=== PATIENT | male | born 1935 | race Caucasian/White ===

== ENCOUNTER 2016-03-05 08:59 | Emergency (ER) | payer MEDICARE, BC ==
[2008-06-22 01:37] VITALS: BP 135/91
[~2016-03-05] VITALS: Ht 185.4 cm; Wt 100.9 kg
[~2016-03-05 08:59] MED LIST: ACTOS30 MG PO; AMBIEN10 MG PO; ANTIVERT 12.512.5 MG PO; ASPIRIN E.C. 8181 MG PO; ATIVAN 0.50.5 MG/TAB PO; ATIVAN0.5 MG PO; BENEMID500 MG PO; CEPHALEXIN500 M1 PO; CLOPIDOGREL; COLACE100 MG/10 PO; COUMADIN 5MG5 MG/TAB PO; COUMADIN PO; DIOVAN 40MG40 MG; DIOVAN HCT; DIOVAN HCT 12.51 TAB PO; DIOVAN/HCT 12.51 TAB PO; FLOMAX 0.40.4 MG/CAP PO; FORTAMET500 MG PO; GLIPIZIDE XL5 MG PO; GLIPIZIDE5 MG PO; GLUCOPHAGE XR500 M1 PO; GLUCOPHAGE1000 MG PO; GLUCOTROL XL5 MG/TAB PO; JANUVIA 100MG100 MG PO; JANUVIA100 MG PO; LASIX 40MG TABL40 MG PO; LIPITOR 10MG10 MG PO; LIPITOR20 MG PO; NEXIUM40 MG PO; NITROSTAT0.4 MG SL; NORCO 325 MG-51 TAB PO; NORVASC 10MG10 MG PO; NORVASC 5MG5 MG/TAB PO; NORVASC10 MG PO; PEPCID 20MG TAB20 MG PO; PLAVIX 75MG TAB75 MG PO; PREVACID 30MG30 M1 PO; PROBENECID; PROTONIX 40MG T40 MG PO; TOPROL XL 50MG50 MG PO; TOPROL XL100 MG PO; WARFARIN SODIUM5 MG PO; [UNRECOGNIZED DRUG - OTHER]
[2016-03-05 09:51] LABS: BASO # 0.1 (0.0-0.2); BASO % 0.8 % (0.0-2.0); EOS # 0.4 (0.0-0.7); EOS % 3.5 % (0-4.0); GRAN # 7.8 (1.4-6.5); GRAN % 73.1 % (42.2-75.2); HEMOGLOBIN 12.6 g/dl (13.5-18.0); LYMPH # 1.3 (1.2-3.4); LYMPH % 12.5 % (20.0-51.0); MEAN CELL VOLUME 90 fl (80.0-100.0); MEAN CORPUSCULAR HEMOGLOBIN 31 pg (27.0-31.0); MEAN CORPUSCULAR HGB CONC 34 g/dl (33.0-37.0); MEAN PLATELET VOLUME 10.5 fl (7.4-10.4); MONO % 9.3 % (1.7-9.3); PLATELET COUNT 184 K/mm3 (130-400); RED BLOOD COUNT 4.07 M/mm3 (4.20-5.60); REDCELL DISTRIBUTION WIDTH-CV 13.9 % (11.5-14.5); WHITE BLOOD COUNT 10.7 K/mm3 (4.8-10.8)
[2016-03-05 09:55] LABS: HEMATOCRIT 36.8 % (42.0-52.0)
[2016-03-05 09:58] LABS: PH 5 (5-8); SQUAMOUS EPITHELIAL None Seen /hpf; URINE APPEARANCE Clear; URINE BACTERIA None Seen /hpf; URINE BILIRUBIN Negative (NEGATIVE); URINE BLOOD 2+ (NEGATIVE); URINE COLOR Yellow; URINE GLUCOSE Negative (NEGATIVE); URINE KETONE Negative (NEGATIVE); URINE RBC 20-50 /hpf; URINE UROBILINOGEN Negative (NEGATIVE); URINE WBC 0-2 /hpf
[2016-03-05 10:27] VITALS: BP 149/86; PULSE 86; TEMP 97.4
[2016-03-05 10:27] LABS: ADJUSTED CALCIUM 10.5 mg/dL (8.4-10.2); ALBUMIN 3.5 gm/dL (3.5-5.0); BILIRUBIN,TOTAL 0.7 mg/dL (0.0-1.0); CALCIUM 10.1 mg/dL (8.4-10.2); CREATININE, serum 1.18 mg/dL (0.66-1.25); POTASSIUM 3.8 mmol/L (3.4-5.0); TOTAL PROTEIN 6.3 gm/dL (6.4-8.2)
[2016-03-05] MEDS ORDERED: MACROBID 1100 MG/CAP PO (22:23)
[2016-03-05] MEDS ORDERED: PYRIDIUM200 M1 PO (22:23)
== END 2016-03-05 10:07 | disposition home or self-care (01) ==
LOC: COL.ER 08:59
PROVIDERS: Family Medicine
DX: R33.9 Retention of urine, unspecified (principal); E11.9 Type 2 diabetes mellitus without complications; I10 Essential (primary) hypertension; Z95.5 Presence of coronary angioplasty implant and graft
CPT/HCPCS: J7040

== ENCOUNTER 2016-03-05 20:25 | Emergency (ER) | payer MEDICARE, BC ==
[2008-06-22 01:37] VITALS: BP 135/91
[~2016-03-05] VITALS: Ht 182.9 cm; Wt 100.9 kg
[2016-03-05 20:27] VITALS: TEMP 97.4
[2016-03-05 21:28] LABS: BASO # 0.1 (0.0-0.2); BASO % 0.5 % (0.0-2.0); EOS # 0.3 (0.0-0.7); EOS % 2.2 % (0-4.0); GRAN # 9.6 (1.4-6.5); GRAN % 74.6 % (42.2-75.2); HEMATOCRIT 37.5 % (42.0-52.0); HEMOGLOBIN 12.7 g/dl (13.5-18.0); LYMPH # 1.6 (1.2-3.4); LYMPH % 12.2 % (20.0-51.0); MEAN CELL VOLUME 90 fl (80.0-100.0); MEAN CORPUSCULAR HEMOGLOBIN 31 pg (27.0-31.0); MEAN CORPUSCULAR HGB CONC 34 g/dl (33.0-37.0); MEAN PLATELET VOLUME 10.6 fl (7.4-10.4); MONO # 1.3 (0.1-0.6); PLATELET COUNT 200 K/mm3 (130-400); RED BLOOD COUNT 4.15 M/mm3 (4.20-5.60); REDCELL DISTRIBUTION WIDTH-CV 14.1 % (11.5-14.5); WHITE BLOOD COUNT 12.9 K/mm3 (4.8-10.8)
[2016-03-05 21:35] LABS: INR 1.9 (0.8-3.0); PROTHROMBIN TIME 21.1 SECONDS (9.7-12.8)
[2016-03-05 21:37] LABS: PARTIAL THROMBOPLASTIN TIME 32.9 SECONDS (26.0-37.0)
[2016-03-05 21:40] LABS: CALCIUM 10.1 mg/dL (8.4-10.2); CREATININE, serum 1.3 mg/dL (0.66-1.25); POTASSIUM 3.7 mmol/L (3.4-5.0)
[2016-03-05] MEDS ORDERED: MACROBID 1100 MG/CAP PO (22:23)
[2016-03-05] MEDS ORDERED: PYRIDIUM200 M1 PO (22:23)
[2016-03-05 22:59] VITALS: BP 151/89; PULSE 84
== END 2016-03-05 22:59 | disposition home or self-care (01) ==
LOC: COL.ER 20:25
PROVIDERS: Emergency Medicine
DX: R33.9 Retention of urine, unspecified (principal); R31.9 Hematuria, unspecified; I10 Essential (primary) hypertension; Z46.6 Encounter for fitting and adjustment of urinary device; I25.10 Atherosclerotic heart disease of native coronary artery without angina pectoris; Z95.5 Presence of coronary angioplasty implant and graft; E11.9 Type 2 diabetes mellitus without complications; Z79.01 Long term (current) use of anticoagulants; Z79.02 Long term (current) use of antithrombotics/antiplatelets; Z95.1 Presence of aortocoronary bypass graft
CPT/HCPCS: J7040

== ENCOUNTER 2016-03-08 14:16 | Emergency (ER) | payer MEDICARE, BC ==
[2008-06-22 01:37] VITALS: BP 135/91
[~2016-03-08] VITALS: Ht 185.4 cm; Wt 100.9 kg
[~2016-03-08 14:16] MED LIST changes: +MACROBID 1100 MG/CAP PO; +PYRIDIUM200 M1 PO
[2016-03-08 14:21] VITALS: BP 129/64; TEMP 97.5
[2016-03-08 15:44] LABS: PH 6 (5-8); SQUAMOUS EPITHELIAL None Seen /hpf; URINE APPEARANCE Cloudy; URINE BACTERIA None Seen /hpf; URINE BILIRUBIN Negative (NEGATIVE); URINE BLOOD 2+ (NEGATIVE); URINE COLOR Amber; URINE GLUCOSE 1+ (NEGATIVE); URINE KETONE Negative (NEGATIVE); URINE RBC >50 /hpf; URINE UROBILINOGEN Negative (NEGATIVE); URINE WBC None Seen /hpf
[2016-03-08 15:53] LABS: BASO # 0.1 (0.0-0.2); BASO % 0.4 % (0.0-2.0); EOS # 0.4 (0.0-0.7); EOS % 2.7 % (0-4.0); GRAN # 10.5 (1.4-6.5); GRAN % 77.5 % (42.2-75.2); HEMATOCRIT 37.6 % (42.0-52.0); HEMOGLOBIN 12.6 g/dl (13.5-18.0); LYMPH # 1.3 (1.2-3.4); LYMPH % 9.4 % (20.0-51.0); MEAN CELL VOLUME 92 fl (80.0-100.0); MEAN CORPUSCULAR HEMOGLOBIN 31 pg (27.0-31.0); MEAN CORPUSCULAR HGB CONC 34 g/dl (33.0-37.0); MEAN PLATELET VOLUME 10.9 fl (7.4-10.4); MONO # 1.2 (0.1-0.6); MONO % 9.2 % (1.7-9.3); PLATELET COUNT 212 K/mm3 (130-400); RED BLOOD COUNT 4.11 M/mm3 (4.20-5.60); REDCELL DISTRIBUTION WIDTH-CV 14.2 % (11.5-14.5); WHITE BLOOD COUNT 13.5 K/mm3 (4.8-10.8)
[2016-03-08 15:54] LABS: PROTHROMBIN TIME 22.4 SECONDS (9.7-12.8)
[2016-03-08 15:59] LABS: CALCIUM 10.1 mg/dL (8.4-10.2); CREATININE, serum 1.36 mg/dL (0.66-1.25)
[2016-03-08 16:53] VITALS: PULSE 88
== END 2016-03-08 16:55 | disposition home or self-care (01) ==
LOC: COL.ER 14:16
PROVIDERS: Emergency Medicine
DX: T83.84XA Pain due to genitourinary prosthetic devices, implants and grafts, initial encounter (principal); T83.038A Leakage of other urinary catheter, initial encounter; R33.9 Retention of urine, unspecified; R31.9 Hematuria, unspecified; I25.10 Atherosclerotic heart disease of native coronary artery without angina pectoris; F17.210 Nicotine dependence, cigarettes, uncomplicated; Z79.01 Long term (current) use of anticoagulants; Z79.02 Long term (current) use of antithrombotics/antiplatelets

== ENCOUNTER 2016-03-09 14:45 | Day surgery (SDC) | payer MEDICARE, BC ==
[~2016-03-09] VITALS: Ht 185.4 cm; Wt 100.9 kg
[2016-03-09] VITALS (9 sets, daily range): BP systolic 100–138; BP diastolic 46–88; PULSE 78–88; TEMP 84–97.9
[2016-03-10 02:45] VITALS: BP 138/63; PULSE 88; TEMP 97.6
[2016-03-10 06:17] LABS: MEAN CELL VOLUME 91 fl (80.0-100.0); MEAN CORPUSCULAR HGB CONC 34 g/dl (33.0-37.0); MEAN PLATELET VOLUME 11.5 fl (7.4-10.4); PLATELET COUNT 209 K/mm3 (130-400); RED BLOOD COUNT 3.77 M/mm3 (4.20-5.60); REDCELL DISTRIBUTION WIDTH-CV 14.1 % (11.5-14.5)
[2016-03-10 06:31] LABS: HEMATOCRIT 34.1 % (42.0-52.0); HEMOGLOBIN 11.6 g/dl (13.5-18.0); MEAN CORPUSCULAR HEMOGLOBIN 31 pg (27.0-31.0); WHITE BLOOD COUNT 21.5 K/mm3 (4.8-10.8)
[2016-03-10 06:32] LABS: ADD PATHOLOGY DIFF REVIEW NO
[2016-03-10 06:33] VITALS: BP 159/82; PULSE 78; TEMP 98.7
[2016-03-10 06:58] LABS: BAND 15 % (0-10); METAMYELOCYTE 3 % (0-0); NEUTROPHILS 71 % (42.0-75.2); OVALOCYTES 1+; PLATELET ESTIMATE NORMAL (NORMAL); SCHISTOCYTES 1+; TOTAL CELLS COUNTED 100
[2016-03-10 09:34] VITALS: BP 93/51; PULSE 80; TEMP 98
== END 2016-03-10 11:15 | disposition home or self-care (01) ==
LOC: JCC 14:45 → SDCO 14:45 → JCC 14:45 → SDCO 03-10 11:15 → JCC 03-10 11:15 → EDSTATUS 03-10 14:51
PROVIDERS: Urology
DX: R31.0 Gross hematuria (principal); R33.8 Other retention of urine; E11.9 Type 2 diabetes mellitus without complications; Z79.84 Long term (current) use of oral hypoglycemic drugs; I10 Essential (primary) hypertension
CPT/HCPCS: OP; J0690; J1100; J2405; J2704; J3010; J7120

== ENCOUNTER → 2016-03-09 | Day surgery (SDC) | payer MEDICARE, BC ==
[2016-03-09 20:06] VITALS: TEMP 97.8
[2016-03-09 20:38] VITALS: BP 123/63; PULSE 82
== END | disposition home or self-care (01) ==
LOC: SDCO 15:33
DX: R31.0 Gross hematuria (principal); R33.8 Other retention of urine; E11.9 Type 2 diabetes mellitus without complications; Z79.84 Long term (current) use of oral hypoglycemic drugs; I10 Essential (primary) hypertension
CPT/HCPCS: J0690; J1100; J2405; J2704; J3010; J7120

== ENCOUNTER → 2016-04-24 | Outpatient (CLI) | payer MEDICARE, BC | LOC: ZCOL.LAB 12:22 | DX: I95.89 Other hypotension (principal); I25.10 Atherosclerotic heart disease of native coronary artery without angina pectoris; R42 Dizziness and giddiness ==

== ENCOUNTER 2016-05-17 11:46 | Observation (INO) | payer MEDICARE, BC ==
[~2016-05-17] VITALS: Ht 185.4 cm; Wt 97.5 kg
[2016-05-17 12:27] LABS: HEMATOCRIT 40.2 % (42.0-52.0); HEMOGLOBIN 13.5 g/dl (13.5-18.0); MEAN CELL VOLUME 93 fl (80.0-100.0); MEAN CORPUSCULAR HEMOGLOBIN 31 pg (27.0-31.0); MEAN CORPUSCULAR HGB CONC 34 g/dl (33.0-37.0); PLATELET COUNT 237 K/mm3 (130-400); RED BLOOD COUNT 4.32 M/mm3 (4.20-5.60)
[2016-05-17 12:38] LABS: INR 1.2 (0.8-3.0); PROTHROMBIN TIME 12.8 SECONDS (9.7-12.8)
[2016-05-17 13:32] VITALS: BP 126/76; PULSE 77; TEMP 97.3
[2016-05-17 21:45] VITALS: BP 179/90; PULSE 75
[2016-05-18 05:50] VITALS: BP 166/86; PULSE 92; TEMP 98.5
[2016-05-18 09:10] LABS: CREATININE, serum 0.99 mg/dL (0.66-1.25)
[2016-05-18 09:42] VITALS: BP 101/54; PULSE 81; TEMP 97.8
[2016-05-18 13:34] VITALS: BP 107/58; PULSE 75; TEMP 97.7
[2016-05-18 21:44] VITALS: BP 118/58; PULSE 72; TEMP 98
[2016-05-19 05:19] VITALS: BP 157/74; PULSE 71; TEMP 97.6
[2016-05-19 11:01] VITALS: BP 151/57; PULSE 76; TEMP 97.1
[2016-05-19 15:40] VITALS: BP 158/78; PULSE 92; TEMP 97.5
[2016-05-19 21:08] VITALS: BP 110/69; PULSE 99; TEMP 98.4
[2016-05-20 05:17] VITALS: BP 130/69; PULSE 78; TEMP 97.4
[2016-05-20 09:44] VITALS: BP 152/72; PULSE 71; TEMP 98
[2016-05-20 14:19] VITALS: BP 124/79; PULSE 73; TEMP 97.5
[2016-05-20 17:59] VITALS: BP 112/57; PULSE 78; TEMP 97.7
[2016-05-20 21:04] VITALS: BP 126/71; BP 135/66; PULSE 77; PULSE 79; TEMP 97.7
[2016-05-21 05:59] VITALS: BP 155/87; PULSE 76; TEMP 97.4
[2016-05-21 10:20] VITALS: BP 159/73; PULSE 78; TEMP 97.8
[2016-05-21 13:04] VITALS: BP 144/87; PULSE 73; TEMP 97.1
[2016-05-21 18:00] VITALS: BP 151/97; PULSE 88; TEMP 96.9
[2016-05-21 21:18] VITALS: BP 155/89; PULSE 73; TEMP 97.6
[2016-05-22 05:42] VITALS: BP 141/65; PULSE 80; TEMP 98.3
== END 2016-05-22 09:19 | disposition home or self-care (01) ==
LOC: SDCO 11:46 → SURG 18:41 → SDCO 05-18 10:00 → SURG 05-18 10:00
PROVIDERS: Urology
DX: N40.1 Benign prostatic hyperplasia with lower urinary tract symptoms (principal); N13.8 Other obstructive and reflux uropathy; R33.8 Other retention of urine
CPT/HCPCS: OP; G0378; J0690; J1100; J1650; J2370; J2405; J2704; J3010; J7030

== ENCOUNTER 2017-10-03 23:30 | Emergency (ER) | payer MEDICARE, BC ==
[2008-06-22 01:37] VITALS: BP 135/91
[2017-10-03 23:30] VITALS: TEMP 99.3
[2017-10-03 23:47] LABS: HEMATOCRIT 40.7 % (42.0-52.0); HEMOGLOBIN 13.6 g/dl (13.5-18.0); MEAN CELL VOLUME 95 fl (80.0-100.0); MEAN CORPUSCULAR HEMOGLOBIN 32 pg (27.0-31.0); MEAN CORPUSCULAR HGB CONC 33 g/dl (33.0-37.0); MEAN PLATELET VOLUME 11.5 fl (7.4-10.4); PLATELET COUNT 191 K/mm3 (130-400); RED BLOOD COUNT 4.29 M/mm3 (4.20-5.60); REDCELL DISTRIBUTION WIDTH-CV 12.9 % (11.5-14.5)
[2017-10-03 23:51] LABS: INR 1.3 (0.8-3.0); PROTHROMBIN TIME 15.1 SECONDS (9.7-12.8)
[2017-10-03 23:53] LABS: PARTIAL THROMBOPLASTIN TIME 37.4 SECONDS (26.0-37.0)
[2017-10-04 00:08] LABS: ALBUMIN 3.5 gm/dL (3.5-5.0); BILIRUBIN,TOTAL 0.6 mg/dL (0.0-1.0); CALCIUM 9.5 mg/dL (8.4-10.2); CREATININE, serum 1.02 mg/dL (0.66-1.25); TOTAL PROTEIN 6.6 gm/dL (6.4-8.2); TROPONIN-I 0.016 ng/mL (0.000-0.034)
[2017-10-04 00:15] VITALS: BP 94/61; PULSE 72
[2017-10-04 00:17] LABS: BAND 2 % (0-10); EOSINOPHIL 3 % (0-4); LYMPHOCYTE 36 % (20.0-51.0); NEUTROPHILS 54 % (42.0-75.2); PLATELET ESTIMATE NORMAL (NORMAL)
[2017-10-04 00:18] LABS: HYPOCHROMIA 1+; POIKILOCYTOSIS 1+
== END 2017-10-04 00:20 | disposition short-term general hospital (02) ==
LOC: COL.ER 23:30
PROVIDERS: Emergency Medicine
DX: I46.9 Cardiac arrest, cause unspecified (principal); I25.10 Atherosclerotic heart disease of native coronary artery without angina pectoris; I10 Essential (primary) hypertension; E11.51 Type 2 diabetes mellitus with diabetic peripheral angiopathy without gangrene; Z95.0 Presence of cardiac pacemaker; Z95.5 Presence of coronary angioplasty implant and graft; Z79.01 Long term (current) use of anticoagulants; Z79.84 Long term (current) use of oral hypoglycemic drugs; Z87.891 Personal history of nicotine dependence
CPT/HCPCS: J7030

== ENCOUNTER → 2017-10-30 | Outpatient (REF) ==
[2017-10-30 07:37] LABS: CALCIUM 9.5 mg/dL (8.4-10.2); CREATININE, serum 1.01 mg/dL (0.66-1.25); POTASSIUM 3.6 mmol/L (3.4-5.0)
== END ==
LOC: ZCOL.LAB 07:18
PROVIDERS: Internal Medicine
DX: E11.65 Type 2 diabetes mellitus with hyperglycemia (principal); E83.42 Hypomagnesemia; N28.9 Disorder of kidney and ureter, unspecified; N18.3 Chronic kidney disease, stage 3 (moderate)

== ENCOUNTER 2018-02-15 13:05 | Outpatient (RCR) | payer MEDICARE, BC | END 2018-02-17 | disposition home or self-care (01) | LOC: COL.CR | DX: Z48.812 Encounter for surgical aftercare following surgery on the circulatory system (principal); Z95.5 Presence of coronary angioplasty implant and graft ==

== ENCOUNTER 2018-03-15 13:57 | Outpatient (RCR) | payer MEDICARE, BC ==
[2018-03-21] MEDS ORDERED: LIPITOR 40MG TA40 MG PO (09:08)
[2018-03-21] MEDS ORDERED: PACERONE200 MG PO (09:08)
[2018-03-21] MEDS ORDERED: AVODART 0.5MG0.5 MG PO (09:09)
[2018-03-21] MEDS ORDERED: ELIQUIS 5MG PO (09:09)
[2018-03-21] MEDS ORDERED: ZESTRIL 20MG TA20 MG PO (09:11)
[2018-03-21] MEDS ORDERED: DESYREL 50MG50 MG PO (09:11)
[2018-03-21] MEDS ORDERED: NITROSTAT0.4 MG/TAB SL (09:12)
[2018-03-21] MEDS ORDERED: TYLENOL 500MG500 MG PO (09:25)
[2018-03-21] MEDS ORDERED: TYLENOL PM EXTR1 TA1 PO (09:27)
[2018-03-21] MEDS ORDERED: LANTUS100 U/ML SQ (09:52)
[2018-03-22] MEDS ORDERED: CEPHALEXIN500 M1 PO (10:12)
== END 2018-05-19 | disposition home or self-care (01) ==
LOC: COL.CR
DX: Z48.812 Encounter for surgical aftercare following surgery on the circulatory system (principal); Z98.61 Coronary angioplasty status

== ENCOUNTER 2018-03-21 14:00 | Day surgery (SDC) | payer MEDICARE, BC | END 2018-03-22 11:53 | disposition home or self-care (01) | LOC: MEDICAL 14:00 | DX: I42.9 Cardiomyopathy, unspecified (principal); I25.10 Atherosclerotic heart disease of native coronary artery without angina pectoris; E11.22 Type 2 diabetes mellitus with diabetic chronic kidney disease; I12.9 Hypertensive chronic kidney disease with stage 1 through stage 4 chronic kidney disease, or unspecified chronic kidney disease; N18.9 Chronic kidney disease, unspecified; K21.9 Gastro-esophageal reflux disease without esophagitis; M10.9 Gout, unspecified; E78.5 Hyperlipidemia, unspecified; G47.33 Obstructive sleep apnea (adult) (pediatric); I73.9 Peripheral vascular disease, unspecified; Z90.49 Acquired absence of other specified parts of digestive tract; Z95.0 Presence of cardiac pacemaker; Z79.02 Long term (current) use of antithrombotics/antiplatelets; Z79.01 Long term (current) use of anticoagulants ==

== ENCOUNTER → 2018-03-26 | Outpatient (CLI) | payer MEDICARE, BC ==
[~2018-03-26] MED LIST changes: +AVODART 0.5MG0.5 MG PO; +DESYREL 50MG50 MG PO; +ELIQUIS 5MG PO; +LANTUS100 U/ML SQ; +LIPITOR 40MG TA40 MG PO; +NITROSTAT0.4 MG/TAB SL; +PACERONE200 MG PO; +TYLENOL 500MG500 MG PO; +TYLENOL PM EXTR1 TA1 PO; +ZESTRIL 20MG TA20 MG PO
== END ==
LOC: COL.RAD 10:39
DX: M43.8X6 Other specified deforming dorsopathies, lumbar region (principal)

== ENCOUNTER 2018-07-01 09:54 | Inpatient (IN) | payer MEDICARE, BC ==
[~2018-07-01] VITALS: Ht 185.4 cm; Wt 96.7 kg
[2018-07-01 10:33] LABS: HEMOGLOBIN 10.8 g/dl (13.5-18.0); MEAN CELL VOLUME 91 fl (80.0-100.0); MEAN CORPUSCULAR HEMOGLOBIN 31 pg (27.0-31.0); MEAN CORPUSCULAR HGB CONC 34 g/dl (33.0-37.0); MEAN PLATELET VOLUME 9.5 fl (7.4-10.4); PLATELET COUNT 265 K/mm3 (130-400); RED BLOOD COUNT 3.53 M/mm3 (4.20-5.60); REDCELL DISTRIBUTION WIDTH-CV 16.4 % (11.5-14.5)
[2018-07-01] MEDS ORDERED: NAMENDA5 MG PO (10:35)
[2018-07-01 10:42] LABS: HEMATOCRIT 32.1 % (42.0-52.0)
[2018-07-01 10:43] LABS: ALBUMIN 2.9 gm/dL (3.5-5.0); BILIRUBIN,TOTAL 0.6 mg/dL (0.0-1.0); CALCIUM 9.6 mg/dL (8.4-10.2); CREATININE, serum 1.19 (0.66-1.25); TOTAL PROTEIN 6.9 gm/dL (6.4-8.2)
[2018-07-01 11:09] LABS: EOSINOPHIL 1 % (0-4); LYMPHOCYTE 7 % (20.0-51.0); NEUTROPHILS 87 % (42.0-75.2); PLATELET ESTIMATE NORMAL (NORMAL)
[2018-07-01 17:07] VITALS: BP 158/74; PULSE 74; TEMP 97.6
--- NOTE | 2018-07-01 18:00 | NUR ---
Patient is going down for x-rays of abdomen. Patient denies nausea and pain. Patient has not been able to void since arriving to the hospital. Discussed this the and Lawanda Jeffries APRN. Patient has not had good luch with catheters in the past, they stated he usually ends up bleeding afterwards. Patient has a history of prostated problems. Bladder scanned patient and it showed 359ml in his bladder. Let the MANAGER FAST FOOD know. Discussed possibly straight catherizing patient once but patient really wants to try voiding on his own. IVF's infusing. No other changes at this time. Call light within reach. Bed alarm on. NG hooked up to LIS with light green drainage.
[2018-07-01 21:00] VITALS: BP 154/74; PULSE 76; TEMP 97.5
[2018-07-02] VITALS (7 sets, daily range): BP systolic 140–179; BP diastolic 57–80; PULSE 68–82; TEMP 97.4–98
--- NOTE | 2018-07-02 01:37 | NUR ---
Upon arrival to shift patient's NG tube was to LIS, but nothing was draining. Upon further assessment, the NG noted to be at the 35 freeman. Patient started vomiting and had moderate amount of green emesis. Attempted to advance NG, but it started to come out his mouth. NG was then pulled. 18G NG was obtained and put in right nare with success. Started to drain green fluid. About an hour later, NG was flushed d/t green fluid being thick. After NG was flushed, it started to drain a lot quicker. Brown fluid noted to be draining with small amount of red drainage. One canister filled and he is working on the 2nd. It was reported to this nurse that patient had not urinated since casing sewer per . Bladder scan showed 450 at 2300. SHER Lam, ordered to put a indwelling chan catheter in. A 16FR coude catheter was placed and about 400ml of cintia urine was returned. At about 0100 his IV site was noted to be leaking bloody fluid. IV site discontinued and new IV site with 20G needle placed in the left forearm. Site immediately bruised, but flushes with ease. Patient compliant with all cares and is pleasant with staff. Will continue to monitor patient throughout the night.
--- NOTE | 2018-07-02 04:57 | NUR ---
Patient has slept intermittently throughout the night. Noted to wake up and mess with his telemetry, NG tube, or catheter. Patient doesn't mess with it enough to bother them, so continuing to monitor closely. NG irrigated x2 tonight with success. Dark brown fluid is draining from NG. Patient continues to ask when we can take it out. Education provided. Catheter continues to drain cintia urine. Patient states his stomach is sore, but denies pain. Will continue to monitor.
--- NOTE | 2018-07-02 06:10 | NUR ---
IV to left forearm noted to be infiltrated. IV was discontinued and pressure was held for about 2-3 minutes. Site was attempted in right forearm, but vein blew when trying to advance catheter. Pressure taken off left forearm to attempt another IV stick, and noted to form a large hematoma. I immediately held pressure while Hernesto RN, went to get Coban to keep pressure to site. Carole notified and she came to attempt IV start. IV was successfully placed in right AC, 20G. Coban continues to be on left forearm and nursing communication inputed to monitor this site closely. Will pass on to oncoming nurse about the situation. Carole stated, if this IV fails, we may need to consult IV therapy for PICC line. Will continue to monitor.
--- NOTE | 2018-07-02 07:00 | NUR ---
Report given to KEMI Lemus.
--- NOTE | 2018-07-02 08:19 | NUR ---
Patient awake this am, watching the weather channel. His has arrived and is at bedside. Patient is alert, some confusion. Aware of whats going on, but not oriented to place. Reminded he is in fact in [place], [place]. Contacting [employer] to update med list, for most accurate list. Patient 5 page assessement completed. Patient was up to chair & fresh linens provided. New NG canister, NG remains to lis with brown tinged output. IVf to RAC. He is Npo, provided with mouth swabs & mouth moisterizer. High fall risk followed, will monitor.
[2018-07-02 08:28] LABS: BASO # 0.1 (0.0-0.2); BASO % 0.5 % (0.0-2.0); EOS % 5.5 % (0-4.0); GRAN # 13.9 (1.4-6.5); GRAN % 78.5 % (42.2-75.2); HEMOGLOBIN 10.6 g/dl (13.5-18.0); LYMPH # 1.2 (1.2-3.4); LYMPH % 6.6 % (20.0-51.0); MEAN CELL VOLUME 94 fl (80.0-100.0); MEAN CORPUSCULAR HEMOGLOBIN 30 pg (27.0-31.0); MEAN CORPUSCULAR HGB CONC 32 g/dl (33.0-37.0); MONO # 1.4 (0.1-0.6); MONO % 7.7 % (1.7-9.3); PLATELET COUNT 256 K/mm3 (130-400); RED BLOOD COUNT 3.56 M/mm3 (4.20-5.60); REDCELL DISTRIBUTION WIDTH-CV 16.9 % (11.5-14.5)
[2018-07-02 08:35] LABS: HEMATOCRIT 33.4 % (42.0-52.0)
[2018-07-02 08:38] LABS: CALCIUM 9.2 mg/dL (8.4-10.2); CREATININE, serum 1.13 (0.66-1.25); INR 1.6 (0.8-3.0); POTASSIUM 3.7 mmol/L (3.4-5.0); PROTHROMBIN TIME 18.4 SECONDS (9.7-12.8)
--- NOTE | 2018-07-02 08:58 | NUR ---
SW attended clinical rounds and then followed up with the patient and patient's , Amena, to discuss discharge plan. The patient lives in [place] with his . He reports independence with ADLs and has a cane and walker. The patient's reports that the patient had just been set up at [facility] for outpatient therapy. The patient's PCP is Dr. Chadwick Moulton and he receives his medications from [facility]. He reports no difficulties obtaining his meds. The patient does not have advanced directives in EMR, but his states that he does have them completed and that they should be at home. The patient's reports that the plan is for the patient to return home, if able to. PT/OT have been ordered. SW to continue to follow.
[2018-07-02 09:22] LABS: COLLECTION METHOD CLEAN CATCH
[2018-07-02 09:33] LABS: MUCOUS Present /lpf; PH 5 (5-8); SQUAMOUS EPITHELIAL None Seen /hpf; URINE APPEARANCE Cloudy; URINE BACTERIA None Seen /hpf; URINE BILIRUBIN Negative (NEGATIVE); URINE BLOOD 3+ (NEGATIVE); URINE COLOR Amber; URINE GLUCOSE 1+ (NEGATIVE); URINE KETONE 1+ (NEGATIVE); URINE LEUKOCYTE ESTERASE Trace (NEGATIVE); URINE NITRATE Negative (NEGATIVE); URINE PROTEIN(semi-quant) 2+ (NEGATIVE); URINE RBC >50 /hpf; URINE UROBILINOGEN Negative (NEGATIVE)
--- NOTE | 2018-07-02 09:40 | NUR ---
Patient up to the bathroom & had a small BM. Ng remains to LIS. Hospitalist rounded, Iv ANTIBIOITCS started after UA sent to lab per orders. Dr.Wolfe salinasing. Pt worked with patient.
--- NOTE | 2018-07-02 10:34 | NUR ---
First visit from the genetic coordinator. No needs right now.
--- NOTE | 2018-07-02 12:40 | NUR ---
Picc line placed per orders, Patient appears to have tolerated well. IVF per orders & IV lopressor. VSS. Blood sugar remains elevated, Insulin per orders. NG to LIS, Amada to CANDELARIA.
--- NOTE | 2018-07-02 13:32 | NUR ---
echo being complpeted. patient resting in bed. with at bedside.
--- NOTE | 2018-07-02 19:31 | NUR ---
Patient resting in bed. called to check in on patient. Patient Ng to LIS. Ivf per order. Ybarra to DD, marginal urine outut that is very concentrated. has gone home for the evening, High fall risk protocol followed.
--- NOTE | 2018-07-02 20:00 | NUR ---
Pt. sitting up in bed at this time. Pt. is alert and confused. Shift assessment complete. PICC to rt. upper arm patent, IV fluids infusing per orders. NG tube to rt. nare intact to LIS. Brown gastric drainage noted. Ybarra catheter to DD, cintia urine note. Pt. denies pain or other needs. Call light within reach, bed alarm on.
--- NOTE | 2018-07-02 20:30 | NUR ---
Pt. bed alarm going off. Upon entering the room. Pt. has pulled PICC line to rt. upper arm out. Bleeding stopped, held pressure to site. and place dressing to rt. arm PICC line site. New IV started to rt. hand at this time. Pt. given ativan per orders.
--- NOTE | 2018-07-02 22:50 | NUR ---
Pt. pulled out NG tube at this time. New 18 FR. placed to rt. nare. Pt. tolerated well. Air ascultated for placement good. Gastric drainage noted when NG hooked up to LIS. Mitts placed on pt. at this time. Pt. also give seroquil at this time. LIS on hold to allow absorbtion.
[2018-07-03] VITALS (7 sets, daily range): BP systolic 102–175; BP diastolic 55–91; PULSE 68–81; TEMP 97.5–98.6
--- NOTE | 2018-07-03 06:06 | NUR ---
Pt. has slept well through the night after the seroquel. Pt. continues to be confused. NG tube remains intact, brown gastric drainage noted. NG irrigated 2 times through the night. IV to rt. hand remains patent, IV fluids infusing per orders. Pt. denies further needs, call light within reach.
[2018-07-03 06:10] LABS: MEAN CELL VOLUME 94 fl (80.0-100.0); MEAN CORPUSCULAR HGB CONC 32 g/dl (33.0-37.0); MEAN PLATELET VOLUME 9.8 fl (7.4-10.4); PLATELET COUNT 224 K/mm3 (130-400); REDCELL DISTRIBUTION WIDTH-CV 17.1 % (11.5-14.5)
[2018-07-03 06:16] LABS: HEMOGLOBIN 9.9 g/dl (13.5-18.0); MEAN CORPUSCULAR HEMOGLOBIN 30 pg (27.0-31.0)
[2018-07-03 06:25] LABS: CALCIUM 8.9 mg/dL (8.4-10.2); CREATININE, serum 1.09 (0.66-1.25); MAGNESIUM 1.9 mg/dL (1.6-2.3); POTASSIUM 3.6 mmol/L (3.4-5.0)
--- NOTE | 2018-07-03 07:33 | NUR ---
Patient down by bed to CT.
[2018-07-03 07:45] LABS: BAND 2 % (0-10); EOSINOPHIL 3 % (0-4); LYMPHOCYTE 7 % (20.0-51.0); NEUTROPHILS 85 % (42.0-75.2)
[2018-07-03 07:46] LABS: HYPOCHROMIA 2+; PLATELET ESTIMATE NORMAL (NORMAL)
--- NOTE | 2018-07-03 08:30 | NUR ---
Patient in bed sleeping, drowsy but rouses to voice. NG to LIS with green output. Ybarra to dependent drainage with cintia urine present in bag. IV fluids infusing to right hand IV via pump per orders. Will continue to monitor.
--- NOTE | 2018-07-03 18:13 | NUR ---
Patient has been sleeping throughout the day. More alert this afternoon, at bedside. Output from NG increased this afternoon. Patient repositioned throughout the day. Mitts on through the day, patient attempts to pull at NG when mitts removed. Ybarra maintained to dependent drainage with cintia urine present. Denies pain at this time. Denies further needs at this time. Will report off to shift engineer.
--- NOTE | 2018-07-03 19:18 | NUR ---
Report received from KEMI Blake.
[2018-07-04] VITALS (178 sets, daily range): BP systolic 96–181; BP diastolic 46–75; PULSE 73–83; TEMP 97.6–99.4; O2SAT 89–100
--- NOTE | 2018-07-04 05:28 | NUR ---
Patient noted to have dark green gastric contents coming out of his NG this morning. 500ml of fluid has been expelled this shift. Patient verbalized frustration with situation and states he is tired of not knowing what the problem is and feels like we aren't doing much to fix it. Education on current situation provided. Will continue to monitor psychosocial needs and reassure patient. Denies any further needs.
[2018-07-04 06:32] LABS: BASO # 0.1 (0.0-0.2); BASO % 0.6 % (0.0-2.0); EOS # 0.5 (0.0-0.7); EOS % 3.3 % (0-4.0); GRAN # 11.8 (1.4-6.5); GRAN % 80.4 % (42.2-75.2); HEMOGLOBIN 10.6 g/dl (13.5-18.0); LYMPH # 0.9 (1.2-3.4); LYMPH % 6.4 % (20.0-51.0); MEAN CELL VOLUME 95 fl (80.0-100.0); MEAN CORPUSCULAR HEMOGLOBIN 30 pg (27.0-31.0); MEAN CORPUSCULAR HGB CONC 32 g/dl (33.0-37.0); MEAN PLATELET VOLUME 10.1 fl (7.4-10.4); MONO # 1.2 (0.1-0.6); MONO % 8.3 % (1.7-9.3); PLATELET COUNT 244 K/mm3 (130-400); RED BLOOD COUNT 3.51 M/mm3 (4.20-5.60); REDCELL DISTRIBUTION WIDTH-CV 17.3 % (11.5-14.5)
[2018-07-04 06:35] LABS: HEMATOCRIT 33.3 % (42.0-52.0)
[2018-07-04 06:37] LABS: CALCIUM 9.1 mg/dL (8.4-10.2); CREATININE, serum 1.02 (0.66-1.25); POTASSIUM 3.7 mmol/L (3.4-5.0)
--- NOTE | 2018-07-04 07:09 | NUR ---
Report given to KEMI Silva.
--- NOTE | 2018-07-04 09:19 | NUR ---
SW attended clinical rounds. The patient is to have surgery today, 07/04. SW to continue to follow.
--- NOTE | 2018-07-04 09:30 | NUR ---
Patient alert and oriented, answers questions appropriately. See assessment. Abdomen soft, non distended. Bowel sounds absent x4 quads. No flatus. NGT in place to LIS, dark brown output noted. Ybarra catheter in place and patent, draining clear yellow urine. No c/o at this time.
--- NOTE | 2018-07-04 11:48 | NUR ---
Report called [facility] ICU.
[2018-07-04 12:19] LABS: ARTERIAL BLD GAS O2 SATURATION 85.2 % (92-100); ARTERIAL BLD GAS TCO2 CT 22.8; ARTERIAL BLOOD GAS BASE EXCESS -4.5 (-2-2); ARTERIAL BLOOD GAS HCO3 21.5 meq/L (22-26); ARTERIAL BLOOD GAS PCO2 43.5 mmHg (35-45); ARTERIAL BLOOD GAS PO2 57.3 mmHg (80-100); ARTERIAL BLOOD GAS pH 7.31 (7.35-7.45)
--- NOTE | 2018-07-04 12:37 | NUR ---
PATIENT ARRIVED TO ICU BED WITH SIZE 8.0 ETTUBE AT 23@LIP POST OP. PLACED PATIENT ON VENT AT THIS TIME NO COMPLICATIONS.
--- NOTE | 2018-07-04 12:37 | NUR ---
Pt transferred from surgery to ICU bed 7. Pt arrived with RT and surgical staff. Vitals stable upon arrival. Pt being mechanically ventilated with arterial and central lines in place. Will continue to monitor.
[2018-07-04 13:43] LABS: ARTERIAL BLD GAS O2 SATURATION 93.1 % (92-100); ARTERIAL BLD GAS TCO2 CT 22.7; ARTERIAL BLOOD GAS HCO3 21.6 meq/L (22-26); ARTERIAL BLOOD GAS PCO2 36.6 mmHg (35-45); ARTERIAL BLOOD GAS PO2 72.4 mmHg (80-100); ARTERIAL BLOOD GAS pH 7.39 (7.35-7.45)
--- NOTE | 2018-07-04 16:00 | NUR ---
Pt sedated and mechanically ventilated. Opens eyes to voice and follows commands. Pt nodded head yes to question of pain. Will increase fentanyl and propofol gtts to maintain RASS score of 0 to -2. Vitals stable at this time. CVP low, bolusing 500 ml of LR per Dr. Meza order. Bed in low position, Pt repositioned. Will continue to monitor.
--- NOTE | 2018-07-04 17:00 | NUR ---
Sedation vacation no performed. Pt recently was restless and displaying signs of pain. Sedation was increased accordingly. Will continue to monitor.
--- NOTE | 2018-07-04 19:13 | NUR ---
Bedside report given to KEMI Dunne.
--- NOTE | 2018-07-04 19:15 | NUR ---
Bedside report received from KEMI Orosco. All lines and medications reviewed. Placement of ET and NG tube confirmed. Dressing assessed. Transfer of care at this time.
[2018-07-04 19:26] LABS: MAGNESIUM 1.6 mg/dL (1.6-2.3); POTASSIUM 3.8 mmol/L (3.4-5.0)
--- NOTE | 2018-07-04 20:00 | NUR ---
Patient appears to be resting comfortably on the ventilator. No signs of distress or pain. is at bedside. Assessment complete. Assessment reveals clear lungs sounds with diminished bases. Bowel sounds are silent. HR and Rhythm regular with normal S1 and S2. Surgical dressing is intact and clean. Patient does follow commands after multiple attempts, patient is hard of hearing. Patient does not open his eyes. Pupils are small and sluggish. Right wrist IV flushes, but is very positional. IV site has a small amount of drainage noted. CVP and Art line zerod. Patient has no other needs at this time. Will continue to monitor. Call light within reach.
[2018-07-05] VITALS (652 sets, daily range): BP systolic 105–154; BP diastolic 42–54; PULSE 77–90; TEMP 98.1–99.9; O2SAT 89–100
--- NOTE | 2018-07-05 | NUR ---
Patient is asleep resting on the vent. Patient opens eyes to name called loudly. Patient follows commands and squeezes hands. Assessment complete. No cahnges from previous exam. Abdomen is still quiet, dressing still clean and dry. Patient is currently receiving his 2nd 500ml bolus of LR to try to increase CVP. CVP and ART line zerod. Vitals remain stable. No signs of pain or distress. WIll continue to monitor. Call light within reach.
--- NOTE | 2018-07-05 04:00 | NUR ---
Assessment complete. No changes from previous exam. Patient is in no obvious distress. Vitals have remained stable. Will continue to monitor. Call light within reach.
--- NOTE | 2018-07-05 04:50 | NUR ---
Propofol and fentanyl decreased for sedation vacation at this time.
[2018-07-05 04:53] LABS: ARTERIAL BLD GAS O2 SATURATION 94.8 % (92-100); ARTERIAL BLD GAS TCO2 CT 20.5; ARTERIAL BLOOD GAS BASE EXCESS -3.6 (-2-2); ARTERIAL BLOOD GAS HCO3 19.6 meq/L (22-26); ARTERIAL BLOOD GAS PCO2 28.2 mmHg (35-45); ARTERIAL BLOOD GAS PO2 77.3 mmHg (80-100); ARTERIAL BLOOD GAS pH 7.46 (7.35-7.45)
[2018-07-05 05:07] LABS: BASO # 0.1 (0.0-0.2); BASO % 0.4 % (0.0-2.0); EOS # 0.9 (0.0-0.7); EOS % 4.9 % (0-4.0); GRAN # 14.5 (1.4-6.5); GRAN % 81.2 % (42.2-75.2); LYMPH # 0.9 (1.2-3.4); LYMPH % 4.9 % (20.0-51.0); MEAN CELL VOLUME 96 fl (80.0-100.0); MEAN CORPUSCULAR HGB CONC 32 g/dl (33.0-37.0); MEAN PLATELET VOLUME 10.1 fl (7.4-10.4); MONO # 1.4 (0.1-0.6); PLATELET COUNT 200 K/mm3 (130-400); REDCELL DISTRIBUTION WIDTH-CV 17.5 % (11.5-14.5)
[2018-07-05 05:09] LABS: HEMATOCRIT 28.7 % (42.0-52.0); HEMOGLOBIN 9.1 g/dl (13.5-18.0); MEAN CORPUSCULAR HEMOGLOBIN 30 pg (27.0-31.0)
[2018-07-05 05:16] LABS: ALBUMIN 2.6 gm/dL (3.5-5.0); BILIRUBIN,TOTAL 0.3 mg/dL (0.0-1.0); CALCIUM 8.6 mg/dL (8.4-10.2); CREATININE, serum 1.15 (0.66-1.25); POTASSIUM 3.7 mmol/L (3.4-5.0); TOTAL PROTEIN 5.7 gm/dL (6.4-8.2)
--- NOTE | 2018-07-05 05:33 | NUR ---
PT IS ON SMART CARE BREATHING ON HIS OWN. PT IS OFF SEDATION. IS AGITATED AND SEEMS RESETLESS. RN IS NOTIFIED. PT IS BRIAN SMART CARE FINE. IS JUST UNCOMFORTABLY WITH THE BREATHING TUBE. WILL CONTINUE TO MONITOR. NO IMMEDIATE DISTRESS NOTED
--- NOTE | 2018-07-05 06:07 | NUR ---
Patient has become very Agitated and is attempting to pull at all lines, restraints, and is attempting to get out of bed. BP has increased to 190's systolic. Propofol and fentanyl increased to previous rate and dose
--- NOTE | 2018-07-05 07:10 | NUR ---
Report received from Vibha MCMULLEN and care resumed.
--- NOTE | 2018-07-05 07:18 | NUR ---
Bedside report given to KEMI Beltre. All lines and medications reviewed. Tube placement confirmed. Transfer of care at this time.
--- NOTE | 2018-07-05 08:05 | NUR ---
Assessment complete. Pt on cpap at this time. Does open eyes to speech and shakes head no when asked to squeeze hands. No signs of pain. Family at bedside and questions answered. Will continue to follow.
--- NOTE | 2018-07-05 08:12 | NUR ---
Dr Meza here at this time.
--- NOTE | 2018-07-05 10:06 | NUR ---
Dr Chris in to see pt.
--- NOTE | 2018-07-05 10:44 | NUR ---
Dr Mobley in to see pt at this time.
[2018-07-05 11:07] LABS: PHOSPHOROUS 2.8 mg/dL (2.5-4.5); TRIGLYCERIDE 57 mg/dL
[2018-07-05 11:08] LABS: CHOLESTEROL < 50 mg/dL (120-200)
--- NOTE | 2018-07-05 15:06 | NUR ---
Pt taken off cpap mode and placed back on CMV at this time.
--- NOTE | 2018-07-05 16:34 | NUR ---
Dr Subramanian back in to check on pt.
[2018-07-05 18:13] LABS: MAGNESIUM 1.6 mg/dL (1.6-2.3); POTASSIUM 3.7 mmol/L (3.4-5.0)
[2018-07-05 18:51] LABS: ARTERIAL BLD GAS O2 SATURATION 94.9 % (92-100); ARTERIAL BLOOD GAS BASE EXCESS -1.6 (-2-2); ARTERIAL BLOOD GAS HCO3 22.8 meq/L (22-26); ARTERIAL BLOOD GAS PCO2 37.2 mmHg (35-45); ARTERIAL BLOOD GAS PO2 78.5 mmHg (80-100); ARTERIAL BLOOD GAS pH 7.41 (7.35-7.45)
--- NOTE | 2018-07-05 19:06 | NUR ---
Recent lab results called to BOAT RIGGER. No new orders at this time. Bedside report given to Carly MCMULLEN and care tranferred.
[2018-07-06] VITALS (1026 sets, daily range): BP systolic 104–128; BP diastolic 40–77; PULSE 73–95; TEMP 97.9–99.6; O2SAT 90–100
[2018-07-06 05:48] LABS: BASO % 0.3 % (0.0-2.0); EOS # 1.6 (0.0-0.7); EOS % 10.1 % (0-4.0); GRAN # 11.9 (1.4-6.5); GRAN % 74.9 % (42.2-75.2); LYMPH # 0.9 (1.2-3.4); LYMPH % 5.6 % (20.0-51.0); MEAN CELL VOLUME 97 fl (80.0-100.0); MEAN CORPUSCULAR HGB CONC 31 g/dl (33.0-37.0); MEAN PLATELET VOLUME 10.2 fl (7.4-10.4); MONO # 1.3 (0.1-0.6); MONO % 8.4 % (1.7-9.3); PLATELET COUNT 174 K/mm3 (130-400); RED BLOOD COUNT 3.04 M/mm3 (4.20-5.60); REDCELL DISTRIBUTION WIDTH-CV 17.4 % (11.5-14.5)
[2018-07-06 05:49] LABS: HEMATOCRIT 29.6 % (42.0-52.0); HEMOGLOBIN 9.3 g/dl (13.5-18.0); MEAN CORPUSCULAR HEMOGLOBIN 31 pg (27.0-31.0)
[2018-07-06 05:58] LABS: CALCIUM 8.8 mg/dL (8.4-10.2); CREATININE, serum 1.09 (0.66-1.25); MAGNESIUM 1.7 mg/dL (1.6-2.3); PHOSPHOROUS 2.3 mg/dL (2.5-4.5); POTASSIUM 3.9 mmol/L (3.4-5.0)
[2018-07-06 08:13] LABS: ARTERIAL BLD GAS O2 SATURATION 89.8 % (92-100); ARTERIAL BLD GAS TCO2 CT 25.8; ARTERIAL BLOOD GAS BASE EXCESS -0.1 (-2-2); ARTERIAL BLOOD GAS HCO3 24.5 meq/L (22-26); ARTERIAL BLOOD GAS PCO2 39.8 mmHg (35-45); ARTERIAL BLOOD GAS PO2 61.1 mmHg (80-100); ARTERIAL BLOOD GAS pH 7.41 (7.35-7.45)
--- NOTE | 2018-07-06 10:08 | NUR ---
Pt on ventillator, opens eyes to speech. ENRIQUE cognition status as he is unable to stay awake, unable to tongue trimmer with hands when prompted. and daughter at bedside. Dr aTdeo and Dr Subramanian at bedside to assess. RT in room as well
--- NOTE | 2018-07-06 12:47 | NUR ---
Pt still resting comfortably. Turned to backside. Restraints repositioned and ROM complete. Pt does open eyes to speech but does not follow commands to senior energy trader or wiggle toes when prompted.
[2018-07-06 16:33] LABS: ARTERIAL BLD GAS O2 SATURATION 87.1 % (92-100); ARTERIAL BLOOD GAS BASE EXCESS 1.5 (-2-2); ARTERIAL BLOOD GAS HCO3 27.5 meq/L (22-26); ARTERIAL BLOOD GAS PCO2 49.6 mmHg (35-45); ARTERIAL BLOOD GAS PO2 55.7 mmHg (80-100); ARTERIAL BLOOD GAS pH 7.36 (7.35-7.45)
--- NOTE | 2018-07-06 17:33 | NUR ---
Pt resting comfortably today, family at bedside. Opens eyes to speech or touch, unable to follow commands when prompted. Turn q2hrs to prevent breakdown
--- NOTE | 2018-07-06 18:07 | NUR ---
PEEP INCREASED TO +10 AND FIO2 INCREASED TO 60% POST AFTERNOON ABG. ABG REPORTED TO DR. RIVER. ORDERS PER DR. RIVER.
[2018-07-07] VITALS (990 sets, daily range): BP systolic 104–121; BP diastolic 49–81; PULSE 83–94; TEMP 97.4–99.1; O2SAT 94–100
--- NOTE | 2018-07-07 01:08 | NUR ---
DRESSING TO MID ABDOMINAL INCISION CHANGED, NOW CDI.
[2018-07-07 05:01] LABS: BASO # 0.1 (0.0-0.2); BASO % 0.3 % (0.0-2.0); EOS # 1.8 (0.0-0.7); EOS % 10.4 % (0-4.0); GRAN # 12.8 (1.4-6.5); GRAN % 75.2 % (42.2-75.2); LYMPH # 0.9 (1.2-3.4); LYMPH % 5.1 % (20.0-51.0); MEAN CELL VOLUME 97 fl (80.0-100.0); MEAN CORPUSCULAR HGB CONC 31 g/dl (33.0-37.0); MEAN PLATELET VOLUME 10.8 fl (7.4-10.4); MONO # 1.4 (0.1-0.6); MONO % 8.2 % (1.7-9.3); PLATELET COUNT 179 K/mm3 (130-400); RED BLOOD COUNT 3.05 M/mm3 (4.20-5.60); REDCELL DISTRIBUTION WIDTH-CV 17.2 % (11.5-14.5)
[2018-07-07 05:02] LABS: HEMATOCRIT 29.6 % (42.0-52.0); HEMOGLOBIN 9.2 g/dl (13.5-18.0); MEAN CORPUSCULAR HEMOGLOBIN 30 pg (27.0-31.0)
--- NOTE | 2018-07-07 05:08 | NUR ---
dressing on left arm change, arm still weeping. now clean, dry and intact.
[2018-07-07 05:10] LABS: CALCIUM 8.8 mg/dL (8.4-10.2); CREATININE, serum 1.17 (0.66-1.25); MAGNESIUM 1.7 mg/dL (1.6-2.3); PHOSPHOROUS 2.6 mg/dL (2.5-4.5); POTASSIUM 4.4 mmol/L (3.4-5.0)
[2018-07-07 05:33] LABS: ARTERIAL BLD GAS TCO2 CT 26.3; ARTERIAL BLOOD GAS BASE EXCESS -1.2 (-2-2); ARTERIAL BLOOD GAS HCO3 24.9 meq/L (22-26); ARTERIAL BLOOD GAS PCO2 47.1 mmHg (35-45); ARTERIAL BLOOD GAS pH 7.34 (7.35-7.45)
--- NOTE | 2018-07-07 07:45 | NUR ---
Pt resting comfortably, unable to follow commands, responds to pain or oral care but does not open eyes when prompted.
[2018-07-07 08:52] LABS: ARTERIAL BLD GAS O2 SATURATION 98.1 % (92-100); ARTERIAL BLD GAS TCO2 CT 26.1; ARTERIAL BLOOD GAS BASE EXCESS -0.1 (-2-2); ARTERIAL BLOOD GAS HCO3 24.8 meq/L (22-26); ARTERIAL BLOOD GAS PCO2 41.7 mmHg (35-45); ARTERIAL BLOOD GAS PO2 136.6 mmHg (80-100); ARTERIAL BLOOD GAS pH 7.39 (7.35-7.45)
--- NOTE | 2018-07-07 11:46 | NUR ---
Pt turned q2hrs, dressing around left forearm changed due to weeping drainage. at bedside this AM. Abx modified, see orders. Pt still unable to follow commands but does respond to/withdraws from painful stimuli
[2018-07-07 16:39] LABS: ARTERIAL BLD GAS O2 SATURATION 96.4 % (92-100); ARTERIAL BLD GAS TCO2 CT 27.8; ARTERIAL BLOOD GAS BASE EXCESS 1.2 (-2-2); ARTERIAL BLOOD GAS HCO3 26.4 meq/L (22-26); ARTERIAL BLOOD GAS PCO2 44.2 mmHg (35-45); ARTERIAL BLOOD GAS PO2 92.8 mmHg (80-100); ARTERIAL BLOOD GAS pH 7.39 (7.35-7.45)
--- NOTE | 2018-07-07 23:14 | NUR ---
pt's BS at 402, will give novolog 10 units per sliding scale order. e care notified and will call me back if MD puts in additional order.
[2018-07-08] VITALS (489 sets, daily range): BP systolic 104–131; BP diastolic 52–64; PULSE 83–94; TEMP 97.2–102.2; O2SAT 92–100
--- NOTE | 2018-07-08 00:07 | NUR ---
PT IS RESTING WELL. ETT MOVED TO R SIDE
--- NOTE | 2018-07-08 04:12 | NUR ---
DRESSING ON ABDOMINAL INSICION CHANGED, NOW CDI.
[2018-07-08 05:17] LABS: BASO # 0.1 (0.0-0.2); BASO % 0.5 % (0.0-2.0); EOS # 1.6 (0.0-0.7); EOS % 11.2 % (0-4.0); GRAN # 10.3 (1.4-6.5); LYMPH # 0.9 (1.2-3.4); MEAN CELL VOLUME 99 fl (80.0-100.0); MEAN CORPUSCULAR HGB CONC 31 g/dl (33.0-37.0); MEAN PLATELET VOLUME 11.2 fl (7.4-10.4); MONO # 1.3 (0.1-0.6); MONO % 9.3 % (1.7-9.3); PLATELET COUNT 201 K/mm3 (130-400); RED BLOOD COUNT 2.96 M/mm3 (4.20-5.60); REDCELL DISTRIBUTION WIDTH-CV 17.3 % (11.5-14.5)
[2018-07-08 05:18] LABS: HEMATOCRIT 29.3 % (42.0-52.0); MEAN CORPUSCULAR HEMOGLOBIN 30 pg (27.0-31.0)
--- NOTE | 2018-07-08 05:25 | NUR ---
PT OPENED HIS EYES WITH TEARS COMING OUT, SHAKING HEAD WHILE THIS RN WAS CLEANING HIS NOSE.
[2018-07-08 05:32] LABS: CALCIUM 9.1 mg/dL (8.4-10.2); CREATININE, serum 1.21 (0.66-1.25); MAGNESIUM 1.9 mg/dL (1.6-2.3); PHOSPHOROUS 2.3 mg/dL (2.5-4.5); POTASSIUM 4.8 mmol/L (3.4-5.0)
--- NOTE | 2018-07-08 05:32 | NUR ---
PLACED PT ON PS 12 ,PEEP8 .HR WAS 90 ,SAT DROPPED FROM 98%TO 90%. RSBI 59 TO 69.SEDATION WAS WEANED DOWN
--- NOTE | 2018-07-08 05:37 | NUR ---
PLACE PT ON PS 12 PEE8 AND 30%. PT'O2 SATURATION DROPPED TO 90%. SEDATION WAS WEANED DOWN,BUT PT IS NOT ALERT . PLACE BACK PT ON CMV. NURSE WAS IN ROOM. LAST ABG. PH 7.4 CO2 37.9 PO2 66.2 HC03 23.9
--- NOTE | 2018-07-08 07:00 | NUR ---
Report recieved from Carly MCMULLEN. Medications verified, RT in room with patient. Repositioned at this time. Call light at side.
--- NOTE | 2018-07-08 08:00 | NUR ---
Noted to have continued Scleral and scrotal edema. No change since this RN first assessed patient on 07/06. Will monitor. Weeping to LUE improved, now BAL will scant yellow drainage.
[2018-07-08 08:15] LABS: ARTERIAL BLD GAS O2 SATURATION 92.5 % (92-100); ARTERIAL BLOOD GAS BASE EXCESS -0.4 (-2-2); ARTERIAL BLOOD GAS HCO3 23.9 meq/L (22-26); ARTERIAL BLOOD GAS PCO2 37.9 mmHg (35-45); ARTERIAL BLOOD GAS PO2 66.2 mmHg (80-100); ARTERIAL BLOOD GAS pH 7.42 (7.35-7.45)
--- NOTE | 2018-07-08 08:40 | NUR ---
All sedation off per Dr. Barth's orders. Will monitor for alertness and needs for sedation/pain relief. Orders recieved. 0900 here, up to date on updates and POC. Voices understanding.
[2018-07-08 10:12] LABS: ARTERIAL BLD GAS O2 SATURATION 91.6 % (92-100); ARTERIAL BLD GAS TCO2 CT 26.2; ARTERIAL BLOOD GAS BASE EXCESS 1.5 (-2-2); ARTERIAL BLOOD GAS HCO3 25.1 meq/L (22-26); ARTERIAL BLOOD GAS PO2 58.4 mmHg (80-100); ARTERIAL BLOOD GAS pH 7.46 (7.35-7.45)
--- NOTE | 2018-07-08 11:40 | NUR ---
1140 Insulin drip started, verified by Aris Mckeon RN 1223 Insulin drip increased to 6.91 units, verified by Aris Mckeon RN 1320 Insulin drip increased to 8.4 units, verified by Aris Mckeon RN 1414 Insulin drip increased to 9.9 units, verified by Aris Mckeon RN 1522 Insulin drip continued at 9.9 units 1621 Insulin drip increased to 12.9 units, verified by Aris Mckeon RN 1731 Insulin drip increased to 16.9 units, verified by Aris Mckeon RN 1825 Insulin drip continued at 16.9 units. 191 Insuline drip increased to 22.9 units, verified by Kd Kang RN
--- NOTE | 2018-07-08 17:00 | NUR ---
No sedation vacation at this time DT no sedation medication infusing at this time. Will monitor for needs.
--- NOTE | 2018-07-08 19:15 | NUR ---
Bedside report given to Dane MCMULLEN. Medications verified and BG obtained, changed per standing order. RT at bedside with patient at this time.
--- NOTE | 2018-07-08 19:35 | NUR ---
Patient assessment completed and charted at this time, please see documentation for details. Patient tolerating ventilator well. Will continue to monitor.
[2018-07-09] VITALS (621 sets, daily range): BP systolic 106–131; BP diastolic 52–64; PULSE 78–92; TEMP 97.8–101; O2SAT 69–100
--- NOTE | 2018-07-09 02:20 | NUR ---
AT GOAL, NO CHANGE. RECHECK AT 0400.
--- NOTE | 2018-07-09 02:45 | NUR ---
Pausing for 30 minutes and rechecking prior to initiating.
[2018-07-09 04:27] LABS: ARTERIAL BLOOD GAS BASE EXCESS 0.7 (-2-2); ARTERIAL BLOOD GAS HCO3 24.9 meq/L (22-26); ARTERIAL BLOOD GAS PCO2 37.7 mmHg (35-45); ARTERIAL BLOOD GAS PO2 103.6 mmHg (80-100); ARTERIAL BLOOD GAS pH 7.44 (7.35-7.45)
--- NOTE | 2018-07-09 04:42 | NUR ---
DRAW ABG. ABG'RESULT LOOKS NORMAL.NO SEDATION. RSBI 65 RR 22 . NURSE NOTIFIED. WILL KEEP PATIENT ON SMARCARE . WAIT IN ROOM FOR 20MNS . PT'RR IS 37 TO 40. PT WAS GETTING TIRED. SWITCH TO CMV.
--- NOTE | 2018-07-09 05:00 | NUR ---
Patient not currently on any sedation.
[2018-07-09 05:21] LABS: MEAN CELL VOLUME 97 fl (80.0-100.0); MEAN CORPUSCULAR HGB CONC 31 g/dl (33.0-37.0); MEAN PLATELET VOLUME 11.1 fl (7.4-10.4); PLATELET COUNT 218 K/mm3 (130-400); REDCELL DISTRIBUTION WIDTH-CV 17.3 % (11.5-14.5)
[2018-07-09 05:24] LABS: HEMATOCRIT 29.2 % (42.0-52.0); HEMOGLOBIN 9.1 g/dl (13.5-18.0); MEAN CORPUSCULAR HEMOGLOBIN 30 pg (27.0-31.0)
[2018-07-09 05:40] LABS: ALBUMIN 2.3 gm/dL (3.5-5.0); BILIRUBIN,TOTAL 0.5 mg/dL (0.0-1.0); CALCIUM 9.4 mg/dL (8.4-10.2); CREATININE, serum 1.42 (0.66-1.25); MAGNESIUM 1.9 mg/dL (1.6-2.3); PHOSPHOROUS 2.5 mg/dL (2.5-4.5); POTASSIUM 3.9 mmol/L (3.4-5.0); TOTAL PROTEIN 5.5 gm/dL (6.4-8.2)
--- NOTE | 2018-07-09 07:01 | NUR ---
PT SUCTIONED FOR A LARGE AMOUNT OF THICK WHITE SECRETIONS. BRIAN WELL
--- NOTE | 2018-07-09 07:41 | NUR ---
Report received from Dane MCMULLEN and care resumed.
--- NOTE | 2018-07-09 08:30 | NUR ---
Dr Tadeo in to see pt at this time.
--- NOTE | 2018-07-09 09:34 | NUR ---
Dr Tadeo called as pt was breathing [address] at bedside and adjusted vent settings. Pt back in CMV mode. Will continue to follow.
--- NOTE | 2018-07-09 10:37 | NUR ---
SW attended clinical rounds. The patient remains intubated. Plan is for him have a head CT today. SW then followed up with the patient's . The patient's had no questions or concerns for SW at this time. SW to continue to follow to ensure safe discharge.
--- NOTE | 2018-07-09 12:34 | NUR ---
Initial visit; Patient sleeping, Portfolio Accountant introduced herself to family, letting them know of the availability of spiritual care and making sure patient was available for Holy Communion offered over the weekend.
--- NOTE | 2018-07-09 13:23 | NUR ---
Pt taken to CT per bed with RT and CT staff present at 1215. Returned at 1230. Pt tolerated well. After returning to room pt's ET tube making gurgling sounds. Position remains unchanged from prior assessments. Equal and bilateral breath sounds noted. Dr Tadeo called and order for chest x-ray received. Following x-ray ET tube advanced and gurgling sounds stopped. Equal bilateral breath sound still noted. Will continue to follow.
--- NOTE | 2018-07-09 16:56 | NUR ---
Pt remains resting at this time. at bedside. Will continue to follow.
--- NOTE | 2018-07-09 17:06 | NUR ---
Pt not currently on any sedation, no vacation needed.
--- NOTE | 2018-07-09 17:53 | NUR ---
Report given to Thi MCMULLEN and care transfered.
--- NOTE | 2018-07-09 22:00 | NUR ---
3 CONSECUTIVE VALUES WITHIN GOAL, RECHECK OF NEXT BS WILL BE EVERY 2 HOURS X 4.
--- NOTE | 2018-07-09 23:53 | NUR ---
AT GOAL, NO CHANGE MADE. RE CHECK AT 0200.
[2018-07-10] VITALS (778 sets, daily range): BP systolic 101–118; BP diastolic 43–60; PULSE 82–88; TEMP 97.4–100.6; O2SAT 84–100
[2018-07-10 04:27] LABS: ARTERIAL BLD GAS O2 SATURATION 95.1 % (92-100); ARTERIAL BLOOD GAS BASE EXCESS 2.8 (-2-2); ARTERIAL BLOOD GAS HCO3 26.9 meq/L (22-26); ARTERIAL BLOOD GAS PCO2 38.8 mmHg (35-45); ARTERIAL BLOOD GAS PO2 81.9 mmHg (80-100); ARTERIAL BLOOD GAS pH 7.46 (7.35-7.45)
--- NOTE | 2018-07-10 05:15 | NUR ---
PT NOT ON ANY MED EXCEPT FOR INSULIN.
--- NOTE | 2018-07-10 05:22 | NUR ---
PT DID NOT PASS THE CPAP TRIAL WENT INTO APNEA VENTILATION. THEREFORE SMART CARE WAS NOT ATTEMTPTED.
[2018-07-10 05:28] LABS: MEAN CELL VOLUME 97 fl (80.0-100.0); MEAN CORPUSCULAR HGB CONC 31 g/dl (33.0-37.0); MEAN PLATELET VOLUME 12.2 fl (7.4-10.4); PLATELET COUNT 232 K/mm3 (130-400); RED BLOOD COUNT 2.66 M/mm3 (4.20-5.60); REDCELL DISTRIBUTION WIDTH-CV 17.6 % (11.5-14.5)
[2018-07-10 05:31] LABS: HEMATOCRIT 25.9 % (42.0-52.0); HEMOGLOBIN 8.1 g/dl (13.5-18.0); MEAN CORPUSCULAR HEMOGLOBIN 30 pg (27.0-31.0)
[2018-07-10 05:35] LABS: CALCIUM 9.5 mg/dL (8.4-10.2); CREATININE, serum 1.49 (0.66-1.25); POTASSIUM 3.8 mmol/L (3.4-5.0)
[2018-07-10 06:01] LABS: ANISOCYTOSIS 1+; BAND 24 % (0-10); EOSINOPHIL 4 % (0-4); HYPOCHROMIA 1+; LYMPHOCYTE 6 % (20.0-51.0); NEUTROPHILS 58 % (42.0-75.2); PLATELET ESTIMATE NORMAL (NORMAL)
[2018-07-10 06:02] LABS: OVALOCYTES 1+
--- NOTE | 2018-07-10 07:10 | NUR ---
Report received from Carly MCMULLEN and care resumed.
--- NOTE | 2018-07-10 08:20 | NUR ---
Dr Barth in to see pt at this time.
--- NOTE | 2018-07-10 08:40 | NUR ---
Dr Subramanian in to see pt at this time.
--- NOTE | 2018-07-10 09:30 | NUR ---
Dr Sidhu in to see pt at this time.
--- NOTE | 2018-07-10 09:45 | NUR ---
SW attended clinical rounds. The patient is to have a MRI today. The hospitalist discussed with the patient's the possibility of the patient needing LTACH, depending on the patient's progress. SW to continue to follow.
--- NOTE | 2018-07-10 11:56 | NUR ---
D/C INSULIN DRIP ORDERED PER DR CARPIO
[2018-07-10 12:32] LABS: CALCIUM 9.4 mg/dL (8.4-10.2); CREATININE, serum 1.53 (0.66-1.25); POTASSIUM 4.3 mmol/L (3.4-5.0)
--- NOTE | 2018-07-10 15:25 | NUR ---
Pt to MRI at this time.
--- NOTE | 2018-07-10 17:00 | NUR ---
1530 PT TRANSPORTED TO MRI VIA MANUALLY VENTILATION (AMBU BAG). PT'S AIRWAY MANAGED BY APOLONIA RIBEIRO. AT THIS TIME PT PLACED BACK ON PREVIOUSLY DOCUMENTED SETTINGS.
--- NOTE | 2018-07-10 17:19 | NUR ---
Pt not on sedation at this time, no vacation needed.
--- NOTE | 2018-07-10 19:20 | NUR ---
Report given to Carly MCMULLEN and care transfered.
[2018-07-10 20:39] LABS: CALCIUM 9.3 mg/dL (8.4-10.2); CREATININE, serum 1.62 (0.66-1.25); POTASSIUM 4.1 mmol/L (3.4-5.0)
[2018-07-11] VITALS (632 sets, daily range): BP systolic 93–115; BP diastolic 47–61; PULSE 60–80; TEMP 97.8–99.6; O2SAT 88–100
--- NOTE | 2018-07-11 02:00 | NUR ---
PT'S BS STILL AT 417, E CARE NOTIFIED. AWAITING FOR ORDERS/CALL BACK.
[2018-07-11 04:46] LABS: MEAN CELL VOLUME 99 fl (80.0-100.0); MEAN CORPUSCULAR HGB CONC 31 g/dl (33.0-37.0); MEAN PLATELET VOLUME 12.3 fl (7.4-10.4); PLATELET COUNT 224 K/mm3 (130-400); REDCELL DISTRIBUTION WIDTH-CV 17.4 % (11.5-14.5)
[2018-07-11 04:55] LABS: HEMATOCRIT 23.8 % (42.0-52.0); HEMOGLOBIN 7.3 g/dl (13.5-18.0); MEAN CORPUSCULAR HEMOGLOBIN 30 pg (27.0-31.0)
[2018-07-11 04:58] LABS: CALCIUM 9.4 mg/dL (8.4-10.2); CREATININE, serum 1.61 (0.66-1.25); POTASSIUM 3.7 mmol/L (3.4-5.0)
--- NOTE | 2018-07-11 05:00 | NUR ---
INITIATE PER DR'S ORDER.
[2018-07-11 05:18] LABS: MAGNESIUM 2.6 mg/dL (1.6-2.3)
--- NOTE | 2018-07-11 05:20 | NUR ---
PT'S HGB AT 7.3, E CARE NOTIFIED.
[2018-07-11 06:13] LABS: BAND 25 % (0-10); EOSINOPHIL 4 % (0-4); HYPOCHROMIA 2+; LYMPHOCYTE 11 % (20.0-51.0); NEUTROPHILS 49 % (42.0-75.2); PLATELET ESTIMATE NORMAL (NORMAL)
[2018-07-11 06:17] LABS: OVALOCYTES 1+
--- NOTE | 2018-07-11 07:05 | NUR ---
Report received from Carly MCMULLEN and care resumed.
--- NOTE | 2018-07-11 07:28 | NUR ---
PT RECEIVED ON SMART CARE AT THIS TIME WITH A RR OF 33. PT PLACED BACK ON AC AT THIS TIME.
--- NOTE | 2018-07-11 08:10 | NUR ---
Dr Subramanian in to see pt at this time.
--- NOTE | 2018-07-11 08:30 | NUR ---
Dr Barth in to see pt at this time.
--- NOTE | 2018-07-11 08:35 | NUR ---
PT PLACED ON SIMV AT THIS TIME PER DR. RIVER AT THIS TIME. PT PLACED ON SIMV TO HELP WITH WEANING PROCESS. PT TOLERATING AT THIS TIME.
--- NOTE | 2018-07-11 09:25 | NUR ---
Follow-up visit; Patient's family appeared to appreciate Resort Keeper's inquiry as to how they are holding up under concern for their loved one.
--- NOTE | 2018-07-11 10:37 | NUR ---
Loyda Bulk with pallative care in to speak with pt's .
[2018-07-11 12:30] LABS: CALCIUM 9.4 mg/dL (8.4-10.2); CREATININE, serum 1.55 (0.66-1.25); POTASSIUM 3.4 mmol/L (3.4-5.0)
[2018-07-11 16:19] LABS: CALCIUM 9.4 mg/dL (8.4-10.2); CREATININE, serum 1.6 (0.66-1.25); POTASSIUM 3.4 mmol/L (3.4-5.0)
--- NOTE | 2018-07-11 19:30 | NUR ---
Report given to Mikaela MCMULLEN and care transfered.
--- NOTE | 2018-07-11 19:31 | NUR ---
RECEIVED REPORT FROM KEMI GATES. MEDICATIONS, TUBES, AND LINES VARIFIED. WILL CONTINUE TO MONITOR PATIENT THROUGHOUT SHIFT.
[2018-07-11 20:26] LABS: CALCIUM 9.4 mg/dL (8.4-10.2); CREATININE, serum 1.5 (0.66-1.25); POTASSIUM 3.5 mmol/L (3.4-5.0)
--- NOTE | 2018-07-11 22:09 | NUR ---
BLOOD SUGAR DECREASED BY 24. INSULIN PROTOCOL STATED TO PLACE INSULIN DRIP ON STANDBY AND RECHECK BLOOD SUGAR IN 30 MINUTES.
--- NOTE | 2018-07-11 22:10 | NUR ---
REINITIATED INSULIN DRIP PER INSULIN PROTOCOL. RESTARTED INSULIN AT 75% OF PREVIOUS RATE - 6.2 TO 4.65.
[2018-07-12] VITALS (536 sets, daily range): BP systolic 13–121; BP diastolic 46–58; PULSE 64–88; TEMP 97.8–99.1; O2SAT 77–100
[2018-07-12 00:55] LABS: CALCIUM 9.4 mg/dL (8.4-10.2); CREATININE, serum 1.43 (0.66-1.25); POTASSIUM 3.4 mmol/L (3.4-5.0)
--- NOTE | 2018-07-12 01:25 | NUR ---
DECREASED INSULIN DRIP PER INSULIN PROTOCOL ORDERS. DECREASED INSULIN BY 2 UNITS, 4.65 TO 2.65 UNITS PER HOUR.
--- NOTE | 2018-07-12 02:30 | NUR ---
DECREASED INSULIN DRIP PER TITRATION PROTOCOL.
[2018-07-12 04:48] LABS: CALCIUM 9.5 mg/dL (8.4-10.2); CREATININE, serum 1.45 (0.66-1.25); POTASSIUM 3.5 mmol/L (3.4-5.0)
--- NOTE | 2018-07-12 05:16 | NUR ---
patient is not currently on any sedation. no need to participate in sedation vacation at this time.
--- NOTE | 2018-07-12 07:27 | NUR ---
gave report to taryn buchanan.
--- NOTE | 2018-07-12 07:45 | NUR ---
INSULIN DRIP VERIFIED BY German PARRA RN
[2018-07-12 09:20] LABS: BASO # 0.1 (0.0-0.2); BASO % 0.5 % (0.0-2.0); EOS # 1.5 (0.0-0.7); EOS % 10.1 % (0-4.0); GRAN # 11.2 (1.4-6.5); GRAN % 74.1 % (42.2-75.2); LYMPH % 6.7 % (20.0-51.0); MEAN CELL VOLUME 99 fl (80.0-100.0); MEAN CORPUSCULAR HGB CONC 31 g/dl (33.0-37.0); MEAN PLATELET VOLUME 13.2 fl (7.4-10.4); MONO # 1.1 (0.1-0.6); MONO % 7.2 % (1.7-9.3); PLATELET COUNT 254 K/mm3 (130-400); RED BLOOD COUNT 2.29 M/mm3 (4.20-5.60); REDCELL DISTRIBUTION WIDTH-CV 17.7 % (11.5-14.5)
[2018-07-12 09:29] LABS: CALCIUM 9.2 mg/dL (8.4-10.2); CREATININE, serum 1.41 (0.66-1.25); POTASSIUM 3.5 mmol/L (3.4-5.0)
[2018-07-12 09:48] LABS: HEMATOCRIT 22.6 % (42.0-52.0); HEMOGLOBIN 6.9 g/dl (13.5-18.0); MEAN CORPUSCULAR HEMOGLOBIN 30 pg (27.0-31.0)
--- NOTE | 2018-07-12 09:54 | NUR ---
SW staffed with the patient's PAArabella. The patient's family plans to continue treatment through the weekend and see if the patient progresses. If not, the patient's family are considering comfort care. SW to continue to follow.
--- NOTE | 2018-07-12 10:45 | NUR ---
INSULIN DRIP VERIFIED WITH German PARRA RN
--- NOTE | 2018-07-12 12:00 | NUR ---
INSULIN DRIP VERIFIED BY German PARRA RN
--- NOTE | 2018-07-12 12:32 | NUR ---
Talked with , Amena, this morning again. We are going to continue current cares through the weekend and then will pursue comfort cares if he is unable to come off the ventilator. She remains very hopeful that he will improve but that remains to be seen.
[2018-07-12 12:35] LABS: CALCIUM 9.2 mg/dL (8.4-10.2); CREATININE, serum 1.36 (0.66-1.25); POTASSIUM 3.7 mmol/L (3.4-5.0)
--- NOTE | 2018-07-12 13:30 | NUR ---
INSULIN DRIP VERIFIED BY German PARRA RN
--- NOTE | 2018-07-12 14:33 | NUR ---
Insulin drip verified by Eva MCMULLEN
[2018-07-12 16:40] LABS: CALCIUM 9.1 mg/dL (8.4-10.2); CREATININE, serum 1.44 (0.66-1.25); POTASSIUM 3.3 mmol/L (3.4-5.0)
--- NOTE | 2018-07-12 17:00 | NUR ---
No sedation at this time, so no sedation vacation needed.
--- NOTE | 2018-07-12 18:44 | NUR ---
Patient resting comfortably this morning, alert to speech and able to open eyes spontaneously. Unable to follow commands or answer yes/no questions when prompted. Arms elevated for significant swelling
--- NOTE | 2018-07-12 18:57 | NUR ---
INSULIN DRIP VERIFIED BY German PARRA RN
--- NOTE | 2018-07-12 20:04 | NUR ---
CALLED AN TALKED WITH SHER SEN REGARDING PATIENTS OCCULT BLOOD TEST. OCCULT BLOOD TEST CAME BACK POSITIVE. FRANCY TALKED WITH DR. CARPIO AND DR. CARPIO WANTS TO HOLD OF ON ANY CONSULTS AT THIS TIME. PATIENT IS RECEIVING 1 UNIT OF BLOOD. WILL CONTINUE TO MONITOR PATIENT AND WILL TALK WITH FAMILY AFTER THE WEEKEND FOR SIGNS OF IMPROVEMENT.
[2018-07-12 20:15] LABS: CALCIUM 9.2 mg/dL (8.4-10.2); CREATININE, serum 1.39 (0.66-1.25); POTASSIUM 3.6 mmol/L (3.4-5.0)
--- NOTE | 2018-07-12 21:15 | NUR ---
REMOVED PATIENTS 6 MONIE FROM ABDOMEN. EDGES OF INCISION LOOKED NICE AN APPROXIMATED. PLACED 3 STERI STRIPS ON INCISION JUST IN CASE.
[2018-07-13] VITALS (695 sets, daily range): BP systolic 88–114; BP diastolic 43–66; PULSE 59–77; TEMP 97.7–98.7; O2SAT 60–100
--- NOTE | 2018-07-13 00:14 | NUR ---
called an spoke with [facility] nurse regarding patients blood pressures. patients pressures have began to decrease, systolic in the low 80's with a map in the 50's-60's. nurse informed me he would pass this on to DR. López and see what route he wanted to take regarding the blood pressure. will continue to monitor patient.
--- NOTE | 2018-07-13 01:24 | NUR ---
increased insulin drip by 0.5 according to protocol.
--- NOTE | 2018-07-13 01:25 | NUR ---
PATIENTS BLOOD SUGARS ARE STARTING TO INCREASE SINCE GIVING THE PATIENT ALBUMIN AND A 500 ML BOLUS OF NS VIA DR. QUIROGA ORDERS. THE LAST TWO BLOOD PRESSURES HAVE BEEN 114/49 AND 117/54 WITH A MAP OF 71. PATIENT DOES SEEM MORE ALERT AT THIS TIME. PATIENT DID SQUEEZE MY HAND WHEN ASKED MULTIPLE TIMES AND SHOOK HIS HEAD ONCE. WILL CONTINUE TO MONITOR PATIENTS STATUS THROUGHOUT SHIFT.
--- NOTE | 2018-07-13 02:09 | NUR ---
VENT CHARTING WAS DONE AT 0111
--- NOTE | 2018-07-13 02:11 | NUR ---
VENT CHARTING WAS DONE AT 0111
[2018-07-13 02:19] LABS: HEMATOCRIT 21.1 % (42.0-52.0); HEMOGLOBIN 6.7 g/dl (13.5-18.0)
--- NOTE | 2018-07-13 02:25 | NUR ---
called [facility] and informed them of patients condition. let the [facility] nurse know the patients new hgb, 6.7, and new blood pressure, 106/57 with a map of 67. [facility] nurse said she would let Dr. López know and he will get back to me as soon as he can. will continue to monitor patient in the mean time.
--- NOTE | 2018-07-13 02:27 | NUR ---
decrease insulin per protocol parameters.
--- NOTE | 2018-07-13 02:42 | NUR ---
TALKED WITH SHER SEN REGARDING PATIENTS LABS AND BLOOD PRESSURE. FRANCY ORDERED 1 UNIT OF PACKED RED BLOOD CELLS TO BE INFUSED AND A GI CONSULT IN THE MORNING.
--- NOTE | 2018-07-13 03:07 | NUR ---
INCREASED INSULIN DRIP PER PROTOCOL PARAMETERS.
--- NOTE | 2018-07-13 04:08 | NUR ---
INCREASED INSULIN DRIP PER PROTOCOL.
--- NOTE | 2018-07-13 05:03 | NUR ---
PATIENT IS NOT CURRENTLY ON ANY SEDATION AT THIS TIME. WILL CONTINUE TO MONITOR PATIENT.
--- NOTE | 2018-07-13 05:17 | NUR ---
INCREASED INSULIN PER PROTOCOL PARAMETERS.
--- NOTE | 2018-07-13 05:20 | NUR ---
Waening assessment will be done on day shift today.
--- NOTE | 2018-07-13 08:10 | NUR ---
bedside report received from KEMI Al. Assessment completed. Pt remains on ventilator. No sedation on. Pt opens eyes spontaneously. Follows simple commands. Repositioned pt for comfort. rectal tube leaking, irrigated with 30cc water. Moderate amt dark/green, liquid stool out. mepilex x2 changed on coccyx. Pericare provided. Pt tolerated repositioning. VSS. will monitor.
--- NOTE | 2018-07-13 08:14 | NUR ---
gave report to taryn estrada.
--- NOTE | 2018-07-13 08:53 | NUR ---
ETT ADVANCED TO 27CM AT THE LIP PER XRAY AND DR RIVER. BLBS EQUAL. NO ISSUES.
--- NOTE | 2018-07-13 09:00 | NUR ---
Physical therapy at bedside. Pt's in room. Pt remains on smartcare. Tolerating well. Resp unlabored. O2sats remain above 92%.
[2018-07-13 09:03] LABS: BASO # 0.1 (0.0-0.2); BASO % 0.5 % (0.0-2.0); EOS # 2.2 (0.0-0.7); EOS % 13.1 % (0-4.0); GRAN % 72.4 % (42.2-75.2); HEMATOCRIT 23.7 % (42.0-52.0); HEMOGLOBIN 7.5 g/dl (13.5-18.0); LYMPH # 1.1 (1.2-3.4); LYMPH % 6.4 % (20.0-51.0); MEAN CELL VOLUME 96 fl (80.0-100.0); MEAN CORPUSCULAR HEMOGLOBIN 30 pg (27.0-31.0); MEAN CORPUSCULAR HGB CONC 32 g/dl (33.0-37.0); MEAN PLATELET VOLUME 12.9 fl (7.4-10.4); MONO % 6.2 % (1.7-9.3); PLATELET COUNT 229 K/mm3 (130-400); RED BLOOD COUNT 2.48 M/mm3 (4.20-5.60); REDCELL DISTRIBUTION WIDTH-CV 17.7 % (11.5-14.5); RETIC # 0.07 M/mm3 (0.02-0.16); RETIC % 2.8 % (0.5-3.52)
[2018-07-13 09:08] LABS: INR 1.5 (0.8-3.0); PROTHROMBIN TIME 17.7 SECONDS (9.7-12.8)
[2018-07-13 09:12] LABS: ALBUMIN 2.5 gm/dL (3.5-5.0); BILIRUBIN,TOTAL 0.6 mg/dL (0.0-1.0); CALCIUM 9.1 mg/dL (8.4-10.2); CREATININE, serum 1.3 (0.66-1.25); POTASSIUM 3.8 mmol/L (3.4-5.0); TOTAL PROTEIN 5.3 gm/dL (6.4-8.2)
--- NOTE | 2018-07-13 11:15 | NUR ---
Dr Brizuela at bedside. updated on pt status. Pt SBP remain 90-100s. Okay to hold metoprolol this AM. Reviewed labs and current medications. No other changes at this time. Pt remains on smartcare and tolerating well. Pt's at bedside. updated on pt status and plan of care r/t smart care and possible extubation. Pt's verbalized understanding.
--- NOTE | 2018-07-13 12:00 | NUR ---
Pt extubated by RT Teresa. Placed on 5L oxymask. O2sats 95%. Pt cough weak, small amt thick white secretions suctioned orally. Pt's voice weak, hard to understand. NGT in right nare remains in place. Pt's at bedside. Updated on pt status. Encouraged pt to cough. VSS. Call light in reach.
--- NOTE | 2018-07-13 14:24 | NUR ---
PT EXTUBATED TO 5L OXYMASK AT 1200. PT SUCTIONED ORALLY AND VIA ETT PRIOR TO EXTUBATION. PT SUCTIONED ORALLY POST EXTUBATION. BRIAN WELL. +BLBS EQUAL. NO STRIDOR NOTED. VSS. HR 87 RR 18 SPO2 94%
--- NOTE | 2018-07-13 16:30 | NUR ---
Pt resting in bed, easily arousable. Decreased o2 to 4L per oxymask. Pt's cough stronger, productive. Oral suctioning completed with small amt thick white secretions. Pt's remains at bedside. SBP 90-100s. Will monitor.
--- NOTE | 2018-07-13 18:32 | NUR ---
Notified PharmacistRina of vanco trough level. Okay to give ordered dose tonight. Will change dose for tomorrow.
--- NOTE | 2018-07-13 19:26 | NUR ---
RECEIVED BEDSIDE REPORT FROM KEMI SMITH. MEDICATIONS, TUBES, AND LINES VARIFIED. WILL CONTINUE TO MONITOR PATIENT THROUGHOUT SHIFT.
--- NOTE | 2018-07-13 23:52 | NUR ---
NOTIFIED [facility] REGARDING PATIENTS BLOOD SUGAR. FOLLOWING HYPOGLYCEMIC PROTOCOL.
[2018-07-14] VITALS (363 sets, daily range): BP systolic 46–126; BP diastolic 20–95; PULSE 61–86; TEMP 98–98.9; O2SAT 66–100
--- NOTE | 2018-07-14 00:02 | NUR ---
PATIENT IS CONFUSED. WHEN CHECKING HIS BLOOD SUGAR HIS BLOOD SUGAR WAS 52. INITIATED THE HYPOGLYCEMIC PROTOCOL. WILL REASSESS LEVELS AND MENTAL STATUS @ 0005. WILL CONTINUE TO MONITOR PATIENT. OTHERWISE NO CHANGES IN PATIENT CONDITION.
--- NOTE | 2018-07-14 00:07 | NUR ---
UPON BLOOD SUGAR RECHECK PATIENTS BLOOD SUGAR WAS 86.
--- NOTE | 2018-07-14 04:03 | NUR ---
patient looks as if he is comfortable. patient is still confused at this time. not sure if it is due to his dementia or other reasons. patient is able to squeeze hands when asked and does nod approperatly when asked if in pain. blood sugar has also increased into normal limits as well. will continue to monitor patient.
[2018-07-14 05:10] LABS: MEAN CELL VOLUME 94 fl (80.0-100.0); MEAN CORPUSCULAR HGB CONC 32 g/dl (33.0-37.0); MEAN PLATELET VOLUME 12.5 fl (7.4-10.4); PLATELET COUNT 287 K/mm3 (130-400); RED BLOOD COUNT 2.37 M/mm3 (4.20-5.60); REDCELL DISTRIBUTION WIDTH-CV 17.5 % (11.5-14.5)
[2018-07-14 05:13] LABS: HEMATOCRIT 22.3 % (42.0-52.0); HEMOGLOBIN 7.2 g/dl (13.5-18.0); MEAN CORPUSCULAR HEMOGLOBIN 30 pg (27.0-31.0)
[2018-07-14 05:19] LABS: ANISOCYTOSIS 1+; BAND 13 % (0-10); EOSINOPHIL 16 % (0-4); LYMPHOCYTE 7 % (20.0-51.0); NEUTROPHILS 59 % (42.0-75.2); PLATELET ESTIMATE NORMAL (NORMAL)
[2018-07-14 05:20] LABS: ROULEAUX 1+
[2018-07-14 05:21] LABS: CALCIUM 8.9 mg/dL (8.4-10.2); CREATININE, serum 1.08 (0.66-1.25); POTASSIUM 3.5 mmol/L (3.4-5.0)
--- NOTE | 2018-07-14 07:30 | NUR ---
Bedside shift report received from KEMI Al. Patient is sleeping, oxymask present. Patient awakens, but responds with incomprehensible sounds. Full assessment completed and documented. Call light placed within reach. Bed in lowest position. Side rails upx3. Patient is in no apparent distress and has no complaints or concerns at this time.
--- NOTE | 2018-07-14 07:58 | NUR ---
gave report to taryn mendoza.
--- NOTE | 2018-07-14 10:15 | NUR ---
scientific technical writer called to call in coating technician for venous duplex of right arm ordered by Dr. Barth.
[2018-07-14 12:27] LABS: HEMATOCRIT 22.4 % (42.0-52.0); HEMOGLOBIN 7.2 g/dl (13.5-18.0)
--- NOTE | 2018-07-14 14:00 | NUR ---
Pharmacy called to ask if okay to still give Vancomycin even though the trough value from yesterday was critically high. Pharmacist assures that it is okay to continue with dose this afternoon.
--- NOTE | 2018-07-14 16:15 | NUR ---
Patient has a large black/dark red liquid stool, assumed to be bloody based on previous positive stool occult blood. Dr. Barth notified at this time of bowel movement. Order received to hold Heparin gtt and get a current hemoglobin & hematocrit.
[2018-07-14 18:01] LABS: HEMATOCRIT 19.9 % (42.0-52.0); HEMOGLOBIN 6.3 g/dl (13.5-18.0)
--- NOTE | 2018-07-14 18:15 | NUR ---
Patient's blood pressure has been trending down and MAP consistently in the 40's and 50's. Dr. Barth notified and received orders. Albumin 200ml bolus given and Levophed initiated at this time. 2 units of PRBCs ordered.
--- NOTE | 2018-07-14 18:45 | NUR ---
Patient's blood pressure is continuously low despite trendelenburg positioning, fluid boluses, and initiation of vasopressors. Patient is not able to focus eyes on anyone and mumbles incoherently.
--- NOTE | 2018-07-14 19:00 | NUR ---
During bedside shift report, patient's , 2 RNs and RT in the room. RT is completing a breathing treatment while report is being discussed. Patient's head turned to the side and patient's eyes are rolling around in his head without focusing on anything. Patient's blood pressure drops to 60's/40's. Levophed titrated up from 0.1mcg/kg/min to 0.3mcg/kg/min. Patient's heart rhythm shows vtach. Patient's is made aware that his heart rate is incompatible with life and that the patient is passing. The patient is a DNR. Magnet is placed on the patient's pacemaker/ICD. Patient becomes still with no visible chest rise or fall. Heart auscultated for 1 minute each by 2 RNs with no heart sounds audible. TOD noted to be 1919.
--- NOTE | 2018-07-14 20:36 | NUR ---
Patient not candidate for donation per [place]. Referral number [id number].
--- NOTE | 2018-07-14 21:30 | NUR ---
Pt assessed out of the facility via mortuary staff member. Forms completed, house fellow notified.
== END 2018-07-14 21:30 | disposition expired | DRG 329 ==
LOC: COL.ER 09:54 → SURG 14:11 → ICU 18:09 → SURG 18:10 → ICU 07-04 14:01
PROVIDERS: Emergency Medicine; Family Medicine; Internal Medicine; Internal Medicine Critical Care Medicine; Internal Medicine Pulmonary Disease; Nurse Practitioner Family; Physician Assistant; Surgery; ADMIT Surgery
PROC: 02HV33Z Insertion of Infusion Device into Superior Vena Cava, Percutaneous Approach (ICD-10-PCS; 2018-07-02)
PROC: 0WJP0ZZ Inspection of Gastrointestinal Tract, Open Approach (ICD-10-PCS; 2018-07-04)
PROC: 5A1955Z Respiratory Ventilation, Greater than 96 Consecutive Hours (ICD-10-PCS; 2018-07-04)
PROC: 03HY32Z Insertion of Monitoring Device into Upper Artery, Percutaneous Approach (ICD-10-PCS; 2018-07-04)
PROC: 02HV33Z Insertion of Infusion Device into Superior Vena Cava, Percutaneous Approach (ICD-10-PCS; 2018-07-04)
PROC: 0DB80ZZ Excision of Small Intestine, Open Approach (ICD-10-PCS; principal; 2018-07-04 10:30)
PROC: 07BB0ZZ Excision of Mesenteric Lymphatic, Open Approach (ICD-10-PCS; 2018-07-04 10:30)
DX: C17.9 Malignant neoplasm of small intestine, unspecified (principal); J96.01 Acute respiratory failure with hypoxia; K56.609 Unspecified intestinal obstruction, unspecified as to partial versus complete obstruction; E87.0 Hyperosmolality and hypernatremia; I82.621 Acute embolism and thrombosis of deep veins of right upper extremity; J95.851 Ventilator associated pneumonia; N17.9 Acute kidney failure, unspecified; G93.40 Encephalopathy, unspecified; I50.22 Chronic systolic (congestive) heart failure; C77.2 Secondary and unspecified malignant neoplasm of intra-abdominal lymph nodes; Z66 Do not resuscitate; I25.5 Ischemic cardiomyopathy; I25.10 Atherosclerotic heart disease of native coronary artery without angina pectoris; K44.9 Diaphragmatic hernia without obstruction or gangrene; D72.829 Elevated white blood cell count, unspecified; E07.9 Disorder of thyroid, unspecified; Y84.9 Medical procedure, unspecified as the cause of abnormal reaction of the patient, or of later complication, without mention of misadventure at the time of the procedure; L98.499 Non-pressure chronic ulcer of skin of other sites with unspecified severity; Y82.9 Unspecified medical devices associated with adverse incidents; Y92.239 Unspecified place in hospital as the place of occurrence of the external cause; J39.8 Other specified diseases of upper respiratory tract; E11.65 Type 2 diabetes mellitus with hyperglycemia; I10 Essential (primary) hypertension; K21.9 Gastro-esophageal reflux disease without esophagitis; I27.20 Pulmonary hypertension, unspecified; E78.5 Hyperlipidemia, unspecified; M10.9 Gout, unspecified; N40.0 Benign prostatic hyperplasia without lower urinary tract symptoms; F03.90 Unspecified dementia, unspecified severity, without behavioral disturbance, psychotic disturbance, mood disturbance, and anxiety; E11.649 Type 2 diabetes mellitus with hypoglycemia without coma; E11.51 Type 2 diabetes mellitus with diabetic peripheral angiopathy without gangrene; G47.33 Obstructive sleep apnea (adult) (pediatric); R53.81 Other malaise; Z79.01 Long term (current) use of anticoagulants; Z79.4 Long term (current) use of insulin; Z95.0 Presence of cardiac pacemaker; Z95.5 Presence of coronary angioplasty implant and graft; Z95.820 Peripheral vascular angioplasty status with implants and grafts; Z87.891 Personal history of nicotine dependence
CPT/HCPCS: OP; 99222-AI; 99232-AI; 99233-AI; A4216; C1751; C1892; C9113; J0330; J0610; J0690; J0696; J1644; J1650; J1815; J1940; J2185; J2250; J2310; J2370; J2543; J2704; J3010; J3370; J3475; J3480; J7030; J7040; J7042; J7050; J7060; J7070; J7120; J7131; P9016; P9047; Q9967